=== PATIENT | male | born 1960 | race Caucasian/White ===

== ENCOUNTER 2020-09-14 20:02 | Emergency (ER) | payer MEDICAID, MEDICARE ==
[~2020-09-14] VITALS: Ht 177.8 cm; Wt 72.6 kg
[2020-09-14 20:25] VITALS: BP 184/106
[2020-09-14] MEDS ORDERED: GLUCAGON HYDROCHLORIDE (RDNA) 1 MG VIAL IV ONE (20:30)
[2020-09-14] MEDS ORDERED: ONDANSETRON HCL 4 MG/2 ML VIAL IV ONE (20:30)
== END 2020-09-14 21:15 | disposition left against medical advice (07) ==
LOC: EDBD 20:02 → ER 20:02
DX: I47.1 Supraventricular tachycardia (principal); I10 Essential (primary) hypertension; Z86.73 Personal history of transient ischemic attack (TIA), and cerebral infarction without residual deficits